=== PATIENT | female | born 1960 | race Caucasian/White ===

== ENCOUNTER 2021-01-18 09:01 | Outpatient (REF) | payer OTHER, SELFPAY ==
[2021-01-18 10:19] LABS: Alanine Aminotransferase 16 U/L (0-31); Anion Gap 15 (12-20); Aspartate Amino Transferase 22 U/L (5-31); Blood Urea Nitrogen 15 mg/dL (9-16); Calcium 9.4 mg/dL (8.4-10.2); Carbon Dioxide 23 mmol/L (22-29); Chloride 105 mmol/L (96-108); Cholesterol 276 mg/dL; Estimated Glomerular Filt Rate > 60; Glucose Fasting 119 mg/dL (60-99); HDL Cholesterol 34 mg/dL; LDL Cholesterol Calculated 176 mg/dl; Potassium 4.8 mmol/L (3.3-5.1); Sodium 138 mmol/L (135-145); Triglycerides 334 mg/dL
[2021-01-18 10:41] LABS: TSH reflex Free T4 3.14 uIU/mL (0.32-4.0); Vitamin D 25-OH Total 6.6 ng/mL (>30)
== END 2021-01-18 09:02 | disposition home or self-care (01) ==
LOC: HO.LAB 09:01
PROVIDERS: PCP Internal Medicine; Visit Provider Internal Medicine
DX: Z00.00 Encounter for general adult medical examination without abnormal findings (principal); I10 Essential (primary) hypertension; Z87.19 Personal history of other diseases of the digestive system
CPT/HCPCS: 36415; 80048; 80061; 82306; 84443; 84450; 84460

== ENCOUNTER 2021-01-25 08:30 | Outpatient (RCR) | payer OTHER, SELFPAY ==
--- NOTE | 2021-01-18 09:06 | MHC.PT.EP ---
[facility] [place] Office [place] Office [place] Office [address] Vimal Loyd [address] [phone] F: [phone] F: [phone] F: [phone] F: [phone] Physical Therapy Plan of Care Date of Evaluation: Date of Surgery: NA Diagnosis: Positional lightheadedness Assessment: 60 year old female referred for positional lightheadedness . Pt reports of having symptoms of vertigo for over last 20 years which periods of no symptoms. Her last episode was 1 month back. She reports of experiencing room spinning dizziness with supine lying and looking up and this lasts for about a few seconds to a minute. She also has occasional nausea. Examination reveals positive nystagmus and vertigo in L valdes pike, DGI- 22/24, GSOP- WNL, and Fakuda- veers to the L. Her saccades, smooth pursuit, head thrust and DVA are WNL. She lives with her son and is independent with ADLS but performs them slowly to avoid dizziness. She would benefit from therapy for vestibular rehab. She is motivated to participate in therapy. Frequency and Duration: The patient will be seen 2/week for 4 weeks. Short Term Goals: Patient to be educated on symptoms and indications to return to therapy when needed min 4 weeks. Pt will be negative for nystagmus or reports of vertigo in all diagnostic positions bilaterally to resolution of BPPV in 4 weeks. Jail Goals: Patient to be able to functionally move in all planes and directions without provocation of dizziness to show return to PLOF in 6 weeks. Treatment Plan: Modalities to reduce pain, spasms and effusion. Manual therapy to restore motion and function. Therapeutic exercise to improve strength and flexibility. Neuromuscular re-education for posture and balance. Therapeutic activities to return to functional activities of daily living. Electronically signed by: Roxanne Emanuel, PT, DPT Please sign and return to therapist. Thank you for your referral.
--- NOTE | 2021-03-08 11:20 | MHC.PT.DC ---
[facility] [place] Office [place] Office [place] Office [address] Vimal Loyd [address] [phone] F: [phone] F: [phone] F: [phone] F: [phone] Physical Therapy Discharge Report Diagnosis: Positional lightheadedness Date of Surgery: NA Date of Evaluation: 01/18/21 Date of Discharge: 03/08/21 Treatments to Date: 3 Cancellations to Date: 0 No Shows to Date: 0 Discharge Status: Achieved Goals Discharge Summary: Lorena has been asymptomatic for vertigo for more than a month. She has therefore been d/c from therapy. Electronically signed by: Roxanne Emanuel PT, DPT Please sign and return to therapist. Thank you for your referral.
== END 2021-03-08 11:21 | disposition other institution (70) ==
LOC: HO.PT 08:30
PROVIDERS: PCP Internal Medicine; Visit Provider Internal Medicine
DX: R42 Dizziness and giddiness (principal)
CPT/HCPCS: 95992; 97110; 97112; 97161

== ENCOUNTER 2021-03-04 08:44 | Outpatient (REF) | payer OTHER, SELFPAY ==
--- NOTE | ~2021-03-04 | MM_ITS ---
EXAMINATION: MM SCREENING DIGITAL BREAST TOMOSYNTHESIS, BILATERAL CLINICAL INFORMATION: Screening. Asymptomatic. The lifetime risk of breast cancer based on the Tyrer-Cuzick Model is 9%. COMPARISON: Outside mammography 04/18/2020 ([facility]); and prior mammography 03/17/2019, 01/03/2017. TECHNIQUE: Digital breast tomosynthesis is performed in both the craniocaudal and mediolateral oblique views along with computer-aided detection (CAD). Synthesized 2D images are generated from the tomosynthesis. FINDINGS: There are scattered areas of fibroglandular density (ACR BI-RADS breast composition Category b). Breast tissue composition borders on predominantly fatty. There are no significant masses, abnormal calcifications, or other abnormalities. Parenchymal pattern is similar to prior exams. No significant changes. Skin contours are smooth. MM/MM tomosynthesis screening BI IMPRESSION: No mammographic evidence of malignancy. ASSESSMENT: BI-RADS 1: Negative RECOMMENDATION: Routine annual mammography screening. This patient's information was entered into a reminder system with a target due date for their next mammogram.
== END 2021-03-04 08:45 | disposition home or self-care (01) ==
LOC: HO.MAMMO 08:44
PROVIDERS: Visit Provider Internal Medicine
DX: Z12.31 Encounter for screening mammogram for malignant neoplasm of breast (principal)
CPT/HCPCS: 77063; 77067

== ENCOUNTER → 2021-03-12 07:59 | Outpatient (BNVA) | payer OTHER, SELFPAY | PROVIDERS: Referring Provider Internal Medicine; Visit Provider Physician Assistant | DX: Z12.11 Encounter for screening for malignant neoplasm of colon (principal) | CPT/HCPCS: 99202 ==

== ENCOUNTER → 2021-04-11 10:34 | Day surgery (SDC) | payer OTHER, SELFPAY ==
[2021-04-05 11:05] VITALS: BMI 45.1
--- NOTE | 2021-04-10 09:58 | HO.ANESPROP2 ---
HPI - Anesthesia Eval Consult details Narrative: Pt cancelled DOS d/t poor prep 61yo F for Colonoscopy PMFSH Active Problems Active Problems: All Active Problems (Updated 03/12/21 @ 08:36 by Danelle Bello PA-C) Encounter for screening colonoscopy (Acute) On Chantix therapy (Acute) History of smoking (Acute) Postmenopause (Acute) Impaired fasting glucose (Acute) Vitamin D deficiency (Acute) Mixed dyslipidemia (Acute) Positional lightheadedness (Acute) Cigarette smoker motivated to quit (Acute) Past Medical History Medical History Cigarette smoker motivated to quit History of smoking Hx of diverticulitis of colon Impaired fasting glucose Mixed dyslipidemia On Chantix therapy Positional lightheadedness Postmenopause Vitamin D deficiency Family History Family History (Updated 03/12/21 @ 08:20 by Danelle Bello PA-C) Father No problems noted. Mother Colon cancer Breast cancer Unknown No problems noted. Surgical History Surgical History Hx of colonoscopy Social History Social History (Updated 03/12/21 @ 08:22 by Danelle Bello PA-C) Household Members Other:: lives with son Alcohol intake: never Patient Tobacco Use Status: Former Tobacco user Current occupational status: retired Meds Allergies Allergy/AdvReac Type Severity Reaction Status Date / Time oxycodone [From Tylox] AdvReac Rash Verified 03/12/21 08:05 Exam Exam Date and Time: April 10, 2021 0958 Height,Weight and Vital Signs: Height 5 ft 4 in Weight 119.351 kg Pertinent Lab Results Pertinent Lab Results: Laboratory Tests 01/18/21 09:20 Sodium 138 Potassium 4.8 Chloride 105 Carbon Dioxide 23 BUN 15 Creatinine 0.87 Assessment and Plan Assessment Anesthesia Assessment: Chart Reviewed
--- NOTE | 2021-04-11 10:38 | MHC.SHP ---
Pre-Procedural Eval Section A Date of Service: 04/11/21 Section B Chief Complaint: screening Details of Present Illness: mother had colon cancer Relevant Family History (Specify if Yes): Yes Relevant Social History: None (ex smoker) Present Medications: see Short Stay Collaborative assessment Medical History: Significant History (History of smoking Hx of diverticulitis of colon Impaired fasting glucose Mixed dyslipidemia On Chantix therapy Positional lightheadedness Postmenopause Vitamin D deficiency) History of Previous Operations: Relevant previous surgery/procedure and date(s) (Hx of colonoscopy) Allergies: Allergies Allergy/AdvReac Type Severity Reaction Status Date / Time oxycodone [From Tylox] AdvReac Rash Verified 03/12/21 08:05 Review of Systems Sugical H&P ROS: Negative: Constitution, Cardiovascular, Respiratory, Neurological, Psychiatric, Hem-Onc, Allergic/Immunologic, Gastrointestinal, Genitourinary, Musculoskeletal, Integumentary, Endocrine and Eyes/Ears/Nose/Throat Exam Surgical H&P Exam: Normal: HEENT, Normal: Heart, Normal: Lungs, Normal: Extremities, Normal: Abdomen, Normal: Skin and Normal: Neurological Plan Diagnosis/Plan: Unchanged I have reviewed the history and physical and performed a pertinent physical examination on my patient. No changes have occurred unless specified.
[2021-04-11] MEDS: Sodium Phosphate,Mono-Dibasic 133 ML ENEMA PR (10:51)
[2021-04-11 11:00] VITALS: BP 142/86; PULSE 92; RESP 18; TEMP 35.9; O2SAT 98
--- NOTE | 2021-04-11 11:03 | PC.NURSE ---
PATIENT RECEIVED A FLEETS ENEMA WITH BROWNISH/CLOUDY OUTPUT AND SOME SMALL STOOL. DR. SPENCER TALKED TO PATIENT AND PROCEDURE IS NOT GOING TO BE COMPLETED TODAY.
== END ==
PROVIDERS: PCP Internal Medicine; Visit Provider Internal Medicine Gastroenterology
DX: Z12.11 Encounter for screening for malignant neoplasm of colon (principal); Z53.8 Procedure and treatment not carried out for other reasons; E55.9 Vitamin D deficiency, unspecified; Z79.899 Other long term (current) drug therapy; F17.210 Nicotine dependence, cigarettes, uncomplicated

== ENCOUNTER 2022-09-27 10:01 | Outpatient (REF) | payer OTHER, SELFPAY ==
--- NOTE | ~2022-09-27 | MM_ITS ---
EXAMINATION: MM SCREENING DIGITAL BREAST TOMOSYNTHESIS, BILATERAL CLINICAL INFORMATION: Screening. Asymptomatic. The lifetime risk of breast cancer based on the Tyrer-Cuzick Model is 8%. COMPARISON: Mammography: 03/04/2021; outside exam 04/18/2020 ([facility]); 03/17/2019. TECHNIQUE: Digital breast tomosynthesis is performed in both the craniocaudal and mediolateral oblique views along with computer-aided detection (CAD). Synthesized 2D images are generated from the tomosynthesis. FINDINGS: There are scattered areas of fibroglandular density (ACR BI-RADS breast composition Category b). There are no significant masses, abnormal calcifications, or other abnormalities. Breast tissue composition borders on predominantly fatty. Background stromal and fibroglandular densities are similar to prior exams. No developing density or architectural abnormality. There is asymmetry of the breasts again seen, left slightly larger. No significant changes. MM/MM tomosynthesis screening BI IMPRESSION: No mammographic evidence of malignancy. ASSESSMENT: BI-RADS 2: Benign RECOMMENDATION: Routine annual mammography screening. This patient's information was entered into a reminder system with a target due date for their next mammogram.
== END 2022-09-27 10:02 | disposition home or self-care (01) ==
LOC: HO.MAMMO 10:01
PROVIDERS: PCP Internal Medicine; Visit Provider Internal Medicine
DX: Z12.31 Encounter for screening mammogram for malignant neoplasm of breast (principal)
CPT/HCPCS: 77063; 77067